=== PATIENT | male | born 1975 | race Caucasian/White ===

== ENCOUNTER 2017-07-14 00:49 | Inpatient (IN) | payer MEDICAID ==
[2017-07-14] VITALS (7 sets, daily range): BP systolic 128–143; BP diastolic 78–96; Ht 182.9 cm; Wt 95.3 kg
[~2017-07-14] VITALS: Ht 182.9 cm; Wt 95.3 kg
[2017-07-14 02:34] LABS: CALCIUM 8.3 mg/dL (8.5-10.1); CARBON DIOXIDE 29.8 mmol/L (21-32); CHLORIDE SERUM 101 mmol/L (98-107); GFR1 > 60 mL/min; GLUCOSE SERUM 125 mg/dL (74-106); POTASSIUM SERUM 3.5 mmol/L (3.5-5.1); SODIUM SERUM 140 mmol/L (136-145)
[2017-07-14 02:38] LABS: BASOPHIL % 0.4 % (0-2); PLATELET COUNT 168 x10^3mcL (130-400); RED CELL DISTRIBUTION WIDTH 13.2 % (11.5-14.5)
[2017-07-14 02:39] LABS: ALBUMIN 3.4 g/dL (3.4-5.0); ALKALINE PHOSPHATASE 71 U/L (46-116); ALT/SGPT 29 U/L (16-63); AST/SGOT 13 U/L (15-37); BILIRUBIN TOTAL 0.39 mg/dL (0.20-1.00); TOTAL PROTEIN, SERUM 7.7 g/dL (6.4-8.2)
[2017-07-14 04:33] LABS: CHOLESTEROL/HDL RATIO 2.6
[2017-07-14 04:38] LABS: T3 TOTAL 0.64 ng/mL
[2017-07-14 04:47] LABS: FREE T4 0.92 ng/dL (0.76-1.46); T4(THYROXINE) 5.7 ug/dL (4.7-13.3)
[2017-07-14 05:04] LABS: microscopic required? YES; urine erythrocyte TRACE (NEGATIVE)
[2017-07-14 05:18] LABS: AMPHETAMINE QUAL UR NONE DETECTED (NEG <=1000)
[2017-07-15 05:52] VITALS: BP 132/88
[2017-07-15 07:18] LABS: BASOPHIL % 0.4 % (0-2); PLATELET COUNT 178 x10^3mcL (130-400); RED CELL DISTRIBUTION WIDTH 13.4 % (11.5-14.5)
[2017-07-15 07:22] LABS: CALCIUM 8.9 mg/dL (8.5-10.1); CARBON DIOXIDE 30.4 mmol/L (21-32); CHLORIDE SERUM 105 mmol/L (98-107); CREATININE SERUM 1.1 mg/dL (0.7-1.3); GFR1 > 60 mL/min; GLUCOSE SERUM 102 mg/dL (74-106); POTASSIUM SERUM 4.2 mmol/L (3.5-5.1); SODIUM SERUM 143 mmol/L (136-145)
[2017-07-15 07:23] VITALS: BP 132/88
[2017-07-15 09:10] VITALS: BP 130/93
[2017-07-15] MEDS ORDERED: TYL325 PO (09:19)
[2017-07-15] MEDS ORDERED: ONDANSETRON4 M3 PO (09:20)
== END 2017-07-15 10:54 | disposition home or self-care (01) | DRG 249 ==
LOC: ED 00:49 → DU 04:17
PROVIDERS: Family Medicine; Specialist
DX: A08.4 Viral intestinal infection, unspecified (principal); E83.51 Hypocalcemia; K57.32 Diverticulitis of large intestine without perforation or abscess without bleeding; F17.210 Nicotine dependence, cigarettes, uncomplicated
CPT/HCPCS: 83880; 84439; J0696; J2270; J2405; J3490; J7030; Q0092

== ENCOUNTER 2018-10-27 21:54 | Emergency (ER) | payer OTHER ==
[~2018-10-27] VITALS: Ht 182.9 cm; Wt 88.6 kg
[~2018-10-27 21:54] MED LIST: ONDANSETRON4 M3 PO; TYL325 PO
[2018-10-27 22:30] VITALS: Ht 182.9 cm; Wt 88.6 kg
[2018-10-27 23:14] VITALS: BP 136/88
== END 2018-10-27 23:14 | disposition home or self-care (01) ==
LOC: ED 21:54
DX: M79.661 Pain in right lower leg (principal)

== ENCOUNTER 2019-02-02 18:28 | Emergency (ER) | payer OTHER ==
[~2019-02-02] VITALS: Ht 182.9 cm; Wt 88.2 kg
[2019-02-02 18:44] VITALS: Ht 182.9 cm; Wt 88.2 kg
[2019-02-02 21:12] VITALS: BP 115/66
== END 2019-02-02 21:12 | disposition home or self-care (01) ==
LOC: ED 18:28
DX: S39.012A Strain of muscle, fascia and tendon of lower back, initial encounter (principal); X50.0XXA Overexertion from strenuous movement or load, initial encounter; X50.9XXA Other and unspecified overexertion or strenuous movements or postures, initial encounter; Y93.89 Activity, other specified; Y92.89 Other specified places as the place of occurrence of the external cause; Y99.8 Other external cause status
CPT/HCPCS: J1885

== ENCOUNTER 2019-04-03 21:43 | Emergency (ER) | payer OTHER ==
[~2019-04-03] VITALS: Ht 182.9 cm; Wt 88.5 kg
[2019-04-03 21:45] VITALS: Ht 182.9 cm; Wt 88.5 kg
[2019-04-03 22:51] LABS: BASOPHIL % 0.4 % (0-2); PLATELET COUNT 166 x10^3mcL (130-400); RED CELL DISTRIBUTION WIDTH 13.7 % (11.5-14.5)
[2019-04-03 23:06] LABS: CALCIUM 8.6 mg/dL (8.5-10.1); CARBON DIOXIDE 28.6 mmol/L (21-32); CHLORIDE SERUM 107 mmol/L (98-107); CREATININE SERUM 1.2 mg/dL (0.7-1.3); GFR1 > 60 mL/min; GLUCOSE SERUM 114 mg/dL (74-106); POTASSIUM SERUM 4.1 mmol/L (3.5-5.1); SODIUM SERUM 144 mmol/L (136-145)
[2019-04-03 23:07] LABS: ALBUMIN 3.6 g/dL (3.4-5.0); ALKALINE PHOSPHATASE 66 U/L (46-116); ALT/SGPT 29 U/L (16-63); AST/SGOT 15 U/L (15-37); BILIRUBIN TOTAL 0.3 mg/dL (0.20-1.00); LIPASE 220 IU/L (73-393); TOTAL PROTEIN, SERUM 7.1 g/dL (6.4-8.2)
[2019-04-04 01:25] VITALS: BP 114/79
== END 2019-04-04 01:25 | disposition home or self-care (01) ==
LOC: ED 21:43
PROVIDERS: Emergency Medicine
DX: R07.89 Other chest pain (principal); R00.2 Palpitations; I10 Essential (primary) hypertension; F41.9 Anxiety disorder, unspecified
CPT/HCPCS: 36415; 85378; Q0092

== ENCOUNTER 2019-06-24 23:19 | Emergency (ER) | payer OTHER ==
[~2019-06-24] VITALS: Ht 182.9 cm; Wt 85.8 kg
[2019-06-24 23:23] VITALS: Ht 182.9 cm; Wt 85.8 kg
[2019-06-25 02:22] VITALS: BP 112/73
== END 2019-06-25 02:22 | disposition home or self-care (01) ==
LOC: ED 23:19
DX: T23.112A Burn of first degree of left thumb (nail), initial encounter (principal); I10 Essential (primary) hypertension; X19.XXXA Contact with other heat and hot substances, initial encounter; Y93.89 Activity, other specified; Y92.89 Other specified places as the place of occurrence of the external cause; Y99.8 Other external cause status
CPT/HCPCS: 90715; J2001